=== PATIENT | male | born 1970 | race American Indian/Alaskan Native ===

== ENCOUNTER 2017-04-19 18:18 | Inpatient (IN) | payer MEDICAID ==
[2017-04-19 19:09] LABS: BASO % 0.3 % (0.0-2.0); HEMATOCRIT 39.6 % (35.0-51.0); LYMPH # 0.8 K/uL (1.0-4.3); LYMPH % 15.2 % (20.0-40.0); MEAN CELL VOLUME 112.5 fL (80.0-94.0); MEAN CORPUSCULAR HEMOGLOBIN 39.9 pg (27.0-31.0); MEAN CORPUSCULAR HGB CONC 35.5 g/dL (33.0-37.0); MEAN PLATELET VOLUME 8.2 fL (7.2-11.7); MONO # 0.3 K/uL (0.0-0.8); MONO % 5.8 % (0.0-10.0); NRBC % 0.3 % (0.0-2.0); RED CELL DISTRIBUTION WIDTH 13.9 % (11.5-14.5); WHITE BLOOD COUNT 5.5 K/uL (4.8-10.8)
[2017-04-19 19:14] LABS: CHLORIDE 100 mmol/L (98-107); POTASSIUM 4.5 mmol/L (3.6-5.2); SODIUM 142 mmol/L (132-148)
[2017-04-19 19:16] LABS: BILIRUBIN,TOTAL 0.9 mg/dL (0.2-1.3); CARBON DIOXIDE 20 mmol/L (22-30); GFR AFRICAN-AMERICAN > 60
[2017-04-19 19:17] LABS: ALB/GLOB RATIO 1.2 (1.0-2.1); ALKALINE PHOSPHATASE 74 U/L (38-126); ALT/SGPT 79 U/L (21-72); AST/SGOT 342 U/L (17-59); BLOOD UREA NITROGEN 10 mg/dL (9-20); CALCIUM 9.4 mg/dl (8.6-10.4); GLUCOSE,RANDOM 120 mg/dL (75-110); TOTAL PROTEIN 8.6 g/dL (6.3-8.3)
[2017-04-19 19:27] LABS: ALCOHOL SERUM 419 mg/dl (0-10)
--- NOTE | 2017-04-19 19:35 | C.PDOC ---
History Of Present Illness 46 y/o male presents to the ED requesting alcohol detox. Patient states his last drink was prior to arrival. He denies any other drug use. FOR DETOX ETOH., LAST DRINK [employer]. DENIES OTHER DRUG USE EXAM NAD PSYCH +MILD INTOX CALM COOPERATIVE NO ACTIVE PSYCHOSIS, SI REMAINDER NEG Time Seen by Provider: 04/19/17 19:17 Chief Complaint (Nursing): Substance Abuse History Per: Patient History/Exam Limitations: intoxication Onset/Duration Of Symptoms: Hrs Current Symptoms Are (Timing): Still Present Suicide/Self Injury Attempted (Context): None Modifying Factor(s): Alcohol Involuntary Hold By: None Recent travel outside of the [place]: No Additional History Per: Patient Past Medical History Reviewed: Historical Data, Nursing Documentation, Vital Signs Vital Signs: Last Vital Signs Temp 98.3 F 04/20/17 04:08 Pulse 78 04/20/17 04:08 Resp 16 04/20/17 04:08 BP 130/79 04/20/17 04:08 Pulse Ox 97 04/20/17 04:08 - Medical History PMH: No Chronic Diseases Surgical History: No Surg Hx Family History: States: Unknown Family Hx - Social History Hx Alcohol Use: Yes Hx Substance Use: No - Immunization History Hx Tetanus Toxoid Vaccination: No Hx Influenza Vaccination: No Hx Pneumococcal Vaccination: No Review Of Systems Psych: Positive for: Other (alcohol detox ) Physical Exam - Physical Exam Appears: No Acute Distress Skin: Normal Color, Warm, Dry Head: Normacephalic Eye(s): bilateral: Normal Inspection Oral Mucosa: Moist Neck: Supple Chest: Symmetrical Cardiovascular: Rhythm Regular Respiratory: Normal Breath Sounds Extremity: Normal ROM Neurological/Psych: Other (mildly intoxicated. calm, cooperative. no active psychosis or suicidal ideation ) ED Course And Treatment - Laboratory Results Result Diagrams: 04/19/17 19:03 04/19/17 19:03 O2 Sat by Pulse Oximetry: 96 (on RA) Pulse Ox Interpretation: Normal Progress Note: labs ordered and reviewed. Progress - Data Reviewed Data Reviewed: Lab, Old records ED OBSERVATION Date of observation admission: 04/19/17 Time of observation admission: 19:00 - Observation admission statement Patient is being placed in observation because:: INTOX - Goals of Observation Goals of observation are:: MED CLEAR, SOBRIETY, DETOX EVAL - Progress Note Progress Note: 04/19/17 19:37 ETOH CLEAR 0700 Disposition Counseled Patient/Family Regarding: Studies Performed, Diagnosis - Disposition Disposition: HOSPITALIZED Disposition Time: 05:34 Condition: STABLE - Clinical Impression Clinical Impression: Alcohol use disorder - Scribe Statement The provider has reviewed the documentation as recorded by the Scribe (Ekaterina Chakraborty) Provider Attestation: All medical record entries made by the Scribe were at my direction and personally dictated by me. I have reviewed the chart and agree that the record accurately reflects my personal performance of the history, physical exam, medical decision making, and the department course for this patient. I have also personally directed, reviewed, and agree with the discharge instructions and disposition. Decision To Admit - Pt Status Changed To: Hospital Disposition Of: Inpatient - Admit Certification Admit to Inpatient:: After my assessment, the patient will require hospitalization for at least two midnights. This is because of the severity of symptoms shown, intensity of services needed, and/or the medical risk in this patient being treated as an outpatient. - InPatient: Physician Admission Certification: I certify that this patient requires 2 or more midnights of care for the following reason:: SEE NOTE - . Bed Request Type: Psychiatry Admitting Physician: Anai Devries Patient Diagnosis: Alcohol use disorder
[2017-04-19 20:04] LABS: URINE BILIRUBIN NEGATIVE (NEGATIVE); URINE BLOOD 1+ (NEGATIVE); URINE COLOR Yellow (YELLOW); URINE GLUCOSE (UA) NORMAL (Normal); URINE KETONE NEGATIVE (NEGATIVE); URINE LEUKOCYTE ESTERASE NEG Leu/uL (Negative); URINE PROTEIN 2+ mg/dL (NEGATIVE); WBC URINE < 1 /hpf (0-5)
[2017-04-20] MEDS ORDERED: Permethrin 5% Cream(60 gm) TOP ONE ×2 (08:15→10:26)
--- NOTE | 2017-04-20 08:31 | PCM.BM ---
<Anel Sher - Last Filed: 04/20/17 08:29> Treatment Plan Problems - Problems identified on initial assessmt Alcohol use disorder Date Initiated: 04/20/17 Assessment reference: NA Status: Active Treatment assets and liabiliti Patient Assests: cooperative, ADL independent Patient Liabilities: relationship conflicts, substance abuse, medical problems - Milieu Protocol Maintain good personal hygiene: daily Encourage regular showers, daily Remind patient to perform daily oral care, daily Assist patient to perform ADL's, every shift Encourage regular showers, every shift Remind patient to perform daily oral care, every shift Assist patient to perform ADL's Maintain personal safety: daily Educate patient to report safety concerns to staff, daily Monitor environment for contraband/sharps, every shift Educate patient to report safety concerns to staff, every shift Monitor environment for contraband/sharps Medication safety: Monitor for expected outcome, potential side effects: every shift, Assess barriers to learning: every shift, Assess readiness for medication education: every shift <Susan Wolf - Last Filed: 04/20/17 10:17> - Diagnosis (1) Alcohol use disorder Status: Acute Interventions: 04/20/17 10:17 * Assess 7x/week regarding severity of withdrawal * Educate regarding risks, benefits, side effects and alternatives of medications * Use Motivational Interviewing for abstinence * Use CBT for relapse prevention * Medication management for withdrawal symptoms * Encourage medication assisted treatment *
--- NOTE | 2017-04-20 10:17 | CP.PCM.CON ---
<Suzi Wilson - Last Filed: 04/20/17 10:43> History of Present Illness - History of Present Illness History of Present Illness: Consult: body rash/ scabies 46 year old male with PMHx of HTN and alcohol abuse presented to the ED overnight for detox. Medicine team has been asked to evaluate patient for rash that is concerning for scabies. Patient has had rash over the past 1 week. Admits that his apartment was found to be infested with fleas/bed bugs. However , patient reports home has been "cleaned". Patient was prescribed Permetherin cream on but never filled prescription. Patient admits his fiance at home also has similar rash/bumps over her arms. She has also not been treated. Denies to injecting drugs into his skin. Admits last use of cocaine was 1 week ago. Admits to drinking around 10 shots of hard alcohol a day for the past 1 year. No other complaints. PMHx: HTN Medications: Norvasc 5 mg Allergies: NKDA Surgeries: none Family Hx: father of ND in his 60's. Social Hx: Admits to tobacco use, uses cocaine and drinks 8-10 shots of hard liquor a day. Denies IVDU. PMD: none Review of Systems - Constitutional Constitutional: absent: Chills, Fatigue, Fever - EENT Eyes: absent: Blurred Vision, Change in Vision - Cardiovascular Cardiovascular: absent: Chest Pain, Dyspnea - Respiratory Respiratory: absent: Cough, Dyspnea - Gastrointestinal Gastrointestinal: absent: Abdominal Pain, Constipation, Diarrhea, Nausea, Vomiting - Genitourinary Genitourinary: absent: Difficulty Urinating, Dysuria - Musculoskeletal Musculoskeletal: absent: Back Pain, Numbness, Tingling - Integumentary Integumentary: Pruritus, Rash - Neurological Neurological: Other (shaky secondary to withdrawal ). absent: Convulsions, Dizziness, Numbness, Radicular Pain, Syncope, Weakness - Psychiatric Psychiatric: absent: Anxiety, Depression - Endocrine Endocrine: absent: Fatigue, Palpitations - Hematologic/Lymphatic Hematologic: absent: Other Past Patient History - Infectious Disease Hx of Infectious Diseases: None - Past Medical History & Family History Past Medical History?: Yes - Past Social History Smoking Status: Current Some Days Smoker - CARDIAC Hx Cardiac Disorders: Yes Hx Hypertension: Yes - PULMONARY Hx Respiratory Disorders: No Hx Tuberculosis: No - NEUROLOGICAL Hx Neurological Disorder: No HX Cerebrovascular Accident: No Hx Seizures: No - HEENT Hx HEENT Problems: No - RENAL Hx Chronic Kidney Disease: No - ENDOCRINE/METABOLIC Hx Endocrine Disorders: No - HEMATOLOGICAL/ONCOLOGICAL Hx Blood Disorders: No Hx Cancer: No Hx Human Immunodeficiency Virus (HIV): No - INTEGUMENTARY Hx Dermatological Problems: Yes Other/Comment: Pt has multiple healing scabs scattered about his body, and states his home was treated for bed bugs and fleas about 3 weeks ago...pt has home medication of permethrin and steroids , pt states he did not use permethrin yet. Pt states he has transient itching. - MUSCULOSKELETAL/RHEUMATOLOGICAL Hx Musculoskeletal Disorders: No Hx Falls: No - GASTROINTESTINAL Hx Gastrointestinal Disorders: No - GENITOURINARY/GYNECOLOGICAL Hx Genitourinary Disorders: No Hx Sexually Transmitted Disorders: No - PSYCHIATRIC Hx Psychophysiologic Disorder: No Hx Substance Use: Yes (cocaine) - SURGICAL HISTORY Hx Surgeries: No - ANESTHESIA Hx Anesthesia: No Meds Allergies/Adverse Reactions: Allergies Allergy/AdvReac Type Severity Reaction Status Date / Time No Known Allergies Allergy Verified 04/19/17 18:21 - Medications Medications: Current Medications Amlodipine Besylate (Norvasc) 5 mg PO DAILY [facility] Folic Acid (Folic Acid) 1 mg PO DAILY MELANI Gabapentin (Neurontin) 300 mg PO BID MELANI Haloperidol (Haldol) 5 mg PO Q8 PRN PRN Reason: Moderate Agitation Hydroxyzine HCl (Atarax) 50 mg PO Q6 PRN PRN Reason: Anxiety Ivermectin (Stromectol) 12 mg PO ONCE ONE Stop: 04/20/17 10:04 Lorazepam (Ativan) 1 mg PO Q4H PRN PRN Reason: Agitation Lorazepam (Ativan) 2 mg PO Q6H MELANI PRN Reason: Taper Stop: 04/24/17 08:59 Last Admin: 04/20/17 08:57 Dose: 2 mg Multivitamins (Hexavitamin) 1 tab PO DAILY [facility] Thiamine HCl (Vitamin B1 Tab) 100 mg PO DAILY MELANI Trazodone HCl (Desyrel) 100 mg PO HS PRN PRN Reason: Insomnia Physical Exam - Constitutional Appears: No Acute Distress, Chronically Ill - Head Exam Head Exam: ATRAUMATIC, NORMAL INSPECTION - Eye Exam Eye Exam: EOMI, Normal appearance - ENT Exam ENT Exam: Mucous Membranes Dry - Neck Exam Neck exam: Positive for: Full Rom, Normal Inspection - Respiratory Exam Respiratory Exam: Clear to Auscultation Bilateral, NORMAL BREATHING PATTERN - Cardiovascular Exam Cardiovascular Exam: REGULAR RHYTHM, +S1, +S2 - GI/Abdominal Exam GI & Abdominal Exam: Hypoactive Bowel Sounds, Normal Bowel Sounds, Soft. absent : Distended, Tenderness - Extremities Exam Extremities exam: Positive for: full ROM. Negative for: tenderness Additional comments: +tremor - Back Exam Back exam: NORMAL INSPECTION - Neurological Exam Neurological exam: Alert, Oriented x3 Additional comments: +unsteady gait - Psychiatric Exam Psychiatric exam: Normal Affect, Normal Mood - Skin Skin Exam: Dry, Warm Additional comments: + hyperkeratotic and crusted areas on bilateral arms and legs. Some seen over hands. +Excoriation hughes. Results - Vital Signs Recent Vital Signs: Last Vital Signs Temp 98.7 F 04/20/17 07:30 Pulse 67 04/20/17 07:30 Resp 18 04/20/17 07:30 BP 144/90 04/20/17 07:30 Pulse Ox 98 04/20/17 07:30 - Labs Result Diagrams: 04/19/17 19:03 04/19/17 19:03 Labs: Laboratory Results - last 24 hr 04/19/17 04/19/17 04/19/17 19:03 19:03 19:58 WBC 5.5 RBC 3.52 L Hgb 14.0 Hct 39.6 MCV 112.5 H MCH 39.9 H MCHC 35.5 RDW 13.9 Plt Count 103 L MPV 8.2 Neut % (Auto) 78.7 H Lymph % (Auto) 15.2 L Wallace % (Auto) 5.8 Eos % (Auto) 0.0 Baso % (Auto) 0.3 Neut # 4.3 Lymph # 0.8 L Wallace # 0.3 Eos # 0.0 Baso # 0.0 Differential Comment Sodium 142 Potassium 4.5 Chloride 100 Carbon Dioxide 20 L Anion Gap 27 H BUN 10 Creatinine 0.9 Est GFR ( Amer) > 60 Est GFR (Non-Af Amer) > 60 Random Glucose 120 H Calcium 9.4 Total Bilirubin 0.9 AST 342 H ALT 79 H Alkaline Phosphatase 74 Total Protein 8.6 H Albumin 4.7 Globulin 3.9 Albumin/Globulin Ratio 1.2 Urine Color Yellow Urine Clarity Clear Urine pH 6.0 Ur Specific Harvey 1.006 Urine Protein 2+ H Urine Glucose (UA) Normal Urine Ketones Negative Urine Blood 1+ H Urine Nitrate Negative Urine Bilirubin Negative Urine Urobilinogen 2.0 Ur Leukocyte Esterase Neg Urine WBC (Auto) < 1 Ur Squamous Epith Cells < 1 Urine Opiates Screen Urine Methadone Screen Ur Barbiturates Screen Ur Phencyclidine Scrn Ur Amphetamines Screen U Benzodiazepines Scrn U Oth Cocaine Metabols U Cannabinoids Screen Alcohol, Quantitative 419 H 04/19/17 19:58 WBC RBC Hgb Hct MCV MCH MCHC RDW Plt Count MPV Neut % (Auto) Lymph % (Auto) Wallace % (Auto) Eos % (Auto) Baso % (Auto) Neut # Lymph # Wallace # Eos # Baso # Differential Comment Sodium Potassium Chloride Carbon Dioxide Anion Gap BUN Creatinine Est GFR ( Amer) Est GFR (Non-Af Amer) Random Glucose Calcium Total Bilirubin AST ALT Alkaline Phosphatase Total Protein Albumin Globulin Albumin/Globulin Ratio Urine Color Urine Clarity Urine pH Ur Specific Harvey Urine Protein Urine Glucose (UA) Urine Ketones Urine Blood Urine Nitrate Urine Bilirubin Urine Urobilinogen Ur Leukocyte Esterase Urine WBC (Auto) Ur Squamous Epith Cells Urine Opiates Screen Negative Urine Methadone Screen Negative Ur Barbiturates Screen Negative Ur Phencyclidine Scrn Negative Ur Amphetamines Screen Negative U Benzodiazepines Scrn Negative U Oth Cocaine Metabols Positive U Cannabinoids Screen Negative Alcohol, Quantitative Assessment & Plan (1) Crusted scabies Assessment and Plan: Patient will be transferred to Med/Surg floor to be placed in contact isolation. Nursing communication: * Staff to shower patient. Fall precautions instructed, such as shower chair, since patient is in withdrawal. * Staff to shave patient and apply Permethrin topical from head to toe and leave there for 12 hours. Patient also ordered for 1 time dose of Ivermectin 12 mg. Will check HIV/RPR/Hep panel f/u CBC in the AM Status: Acute (2) HTN (hypertension) Assessment and Plan: Continue home medication of Norvasc 5 mg PO daily Status: Acute (3) Alcohol use disorder Assessment and Plan: Management as per Detox team. Dr. Wolf will continue to follow patient on medical floor. Ativan 2 mg PO Q6H (taper) Ativan 1 mg PO Q4H PRN Agitations Haldol 5 mg PO Q8H PRN Mod Agitation Thiamine 100 mg PO daily MV PO daily Folic Acid 1 mg PO daily Hydroxyzine 50 mg PO Q6H PRN Anxiety Fall risk protocol Seizure precautions Status: Acute (4) Cocaine abuse Assessment and Plan: Management as per Detox team. Dr. Wolf will continue to follow patient on medical floor. UDS + cocaine. Management as above. Status: Acute (5) Prophylactic measure Assessment and Plan: Pepcid 20 mg PO BID SCDs Fall risk protocol Status: Acute <MeredithSotero H - Last Filed: 04/20/17 14:48> Meds - Medications Medications: Current Medications Amlodipine Besylate (Norvasc) 5 mg PO DAILY [facility] Last Admin: 04/20/17 10:58 Dose: 5 mg Famotidine (Pepcid) 20 mg PO BID [facility] Folic Acid (Folic Acid) 1 mg PO DAILY [facility] Last Admin: 04/20/17 10:58 Dose: 1 mg Gabapentin (Neurontin) 300 mg PO BID [facility] Last Admin: 04/20/17 10:58 Dose: 300 mg Haloperidol (Haldol) 5 mg PO Q8 PRN PRN Reason: Moderate Agitation Hydroxyzine HCl (Atarax) 50 mg PO Q6 PRN PRN Reason: Anxiety Lorazepam (Ativan) 1 mg PO Q4H PRN PRN Reason: Agitation Last Admin: 04/20/17 10:58 Dose: 1 mg Lorazepam (Ativan) 2 mg PO Q6H MELANI PRN Reason: Taper Stop: 04/24/17 08:59 Last Admin: 04/20/17 14:14 Dose: 2 mg Multivitamins (Hexavitamin) 1 tab PO DAILY [facility] Last Admin: 04/20/17 10:58 Dose: 1 tab Thiamine HCl (Vitamin B1 Tab) 100 mg PO DAILY [facility] Last Admin: 04/20/17 10:58 Dose: 100 mg Trazodone HCl (Desyrel) 100 mg PO HS PRN PRN Reason: Insomnia Results - Vital Signs Recent Vital Signs: Last Vital Signs Temp 98.8 F 04/20/17 13:18 Pulse 66 04/20/17 13:18 Resp 18 04/20/17 13:18 BP 180/97 H 04/20/17 13:18 Pulse Ox 98 04/20/17 13:18 - Labs Result Diagrams: 04/19/17 19:03 04/19/17 19:03 Labs: Laboratory Results - last 24 hr 04/19/17 04/19/17 04/19/17 19:03 19:03 19:58 WBC 5.5 RBC 3.52 L Hgb 14.0 Hct 39.6 MCV 112.5 H MCH 39.9 H MCHC 35.5 RDW 13.9 Plt Count 103 L MPV 8.2 Neut % (Auto) 78.7 H Lymph % (Auto) 15.2 L Wallace % (Auto) 5.8 Eos % (Auto) 0.0 Baso % (Auto) 0.3 Neut # 4.3 Lymph # 0.8 L Wallace # 0.3 Eos # 0.0 Baso # 0.0 Differential Comment Sodium 142 Potassium 4.5 Chloride 100 Carbon Dioxide 20 L Anion Gap 27 H BUN 10 Creatinine 0.9 Est GFR ( Amer) > 60 Est GFR (Non-Af Amer) > 60 Random Glucose 120 H Calcium 9.4 Total Bilirubin 0.9 AST 342 H ALT 79 H Alkaline Phosphatase 74 Total Protein 8.6 H Albumin 4.7 Globulin 3.9 Albumin/Globulin Ratio 1.2 Urine Color Yellow Urine Clarity Clear Urine pH 6.0 Ur Specific Harvey 1.006 Urine Protein 2+ H Urine Glucose (UA) Normal Urine Ketones Negative Urine Blood 1+ H Urine Nitrate Negative Urine Bilirubin Negative Urine Urobilinogen 2.0 Ur Leukocyte Esterase Neg Urine WBC (Auto) < 1 Ur Squamous Epith Cells < 1 Urine Opiates Screen Urine Methadone Screen Ur Barbiturates Screen Ur Phencyclidine Scrn Ur Amphetamines Screen U Benzodiazepines Scrn U Oth Cocaine Metabols U Cannabinoids Screen Alcohol, Quantitative 419 H Hepatitis A IgM Ab Hep Bs Antigen Hep B Core IgM Ab Hepatitis C Antibody HIV 1&2 Antibody Screen 04/19/17 04/20/17 04/20/17 19:58 11:29 11:29 WBC RBC Hgb Hct MCV MCH MCHC RDW Plt Count MPV Neut % (Auto) Lymph % (Auto) Wallace % (Auto) Eos % (Auto) Baso % (Auto) Neut # Lymph # Wallace # Eos # Baso # Differential Comment Sodium Potassium Chloride Carbon Dioxide Anion Gap BUN Creatinine Est GFR ( Amer) Est GFR (Non-Af Amer) Random Glucose Calcium Total Bilirubin AST ALT Alkaline Phosphatase Total Protein Albumin Globulin Albumin/Globulin Ratio Urine Color Urine Clarity Urine pH Ur Specific Harvey Urine Protein Urine Glucose (UA) Urine Ketones Urine Blood Urine Nitrate Urine Bilirubin Urine Urobilinogen Ur Leukocyte Esterase Urine WBC (Auto) Ur Squamous Epith Cells Urine Opiates Screen Negative Urine Methadone Screen Negative Ur Barbiturates Screen Negative Ur Phencyclidine Scrn Negative Ur Amphetamines Screen Negative U Benzodiazepines Scrn Negative U Oth Cocaine Metabols Positive U Cannabinoids Screen Negative Alcohol, Quantitative Hepatitis A IgM Ab Negative Hep Bs Antigen Negative Hep B Core IgM Ab Negative Hepatitis C Antibody Negative HIV 1&2 Antibody Screen Negative Attending/Attestation - Attestation I have personally seen and examined this patient.: Yes I have fully participated in the care of the patient.: Yes I have reviewed all pertinent clinical information: Yes Notes (Text): 04/20/17 14:44 Medical Attending: Medical consult: Patient was seen and examined by me, agrees the above note by medical records tech. Patient is currently at 7 detox for alcohol withdrawal, cocaine use, as well as depression. To medicine was consulate after we were notified that the patient reported that he has outbreak of scabies is concern about bed bugs as well. As documented above the resident note there is concern for home attestation. We came over to see the patient he has a lot of lesions on his skin particularly the forearms and also in the antecubital fossa that appeared to be areas of a lot of itching, and slightly small raised erythematous areas. This is all over his forearm as well as slightly on his shoulders and also on his sacral area. Interestingly enough he did not have any in the webs of his fingers the webs of his toes. However it's rather extensive At this time we gave instructions to use clipper shaved the patient completely both head to his toes. He needs to take shower as soon as possible. He also needs to start permethrin cream to be placed on generously over the surface of his body that are affected. There is also given ivermectin to be given a one- time dose Thank you very much, Sotero Harper
[2017-04-20] MEDS: Multiple Vitamins Tab PO SCH (10:58)
--- NOTE | 2017-04-20 11:42 | PCM.PSYCH ---
Initial Psychiatric Evaluation - Initial Psychiatric Evaluation Type of Admission: Voluntary Legal Status: Capacity Chief Complaint (in patient's own words): "Alcohol" History of Present Illness and Precipitating Events: The patient is seen, chart reviewed and case discussed. This is a 46-year-old -[place] male, with one daughter, lives with his mother. The patient admits to drinking 10 shots of liquor every day and 2-3 cans of beer on top of that. He says his been drinking "many years." He first started drinking when he was 14 years old and the last few years it has become a big problem. This is his first detox and he has never been to AA or rehabilitation. He has never used alcohol anti-craving medications. No history of seizures or DTs. He also denies other drug use except for cocaine "once or twice a month," by smoking. He smokes half pack per day cigarettes. He denies psych symptoms. Past psych history: Denies Family psych history: Denies Medical history: High blood pressure and recently diagnosed scabies. The patient also had bed bugs but he claims it's been taken care of. He is seen by medicine and he has a cream for scabies. Help appreciated Current Medications: Active Medications Generic Name Dose Route Start Last Admin Trade Name Freq PRN Reason Stop Dose Admin Amlodipine Besylate 5 mg 04/20/17 10:00 04/20/17 10:58 Norvasc PO 5 mg DAILY [facility] Administration Famotidine 20 mg 04/21/17 10:00 Pepcid PO BID [facility] Folic Acid 1 mg 04/20/17 10:00 04/20/17 10:58 Folic Acid PO 1 mg DAILY [facility] Administration Gabapentin 300 mg 04/20/17 10:00 04/20/17 10:58 Neurontin PO 300 mg BID [facility]ANI Administration Haloperidol 5 mg 04/20/17 05:34 Haldol PO Q8 PRN Moderate Agitation Hydroxyzine HCl 50 mg 04/20/17 08:48 Atarax PO Q6 PRN Anxiety Lorazepam 1 mg 04/20/17 05:40 04/20/17 10:58 Ativan PO 1 mg Q4H PRN Administration Agitation Lorazepam 2 mg 04/20/17 09:00 04/20/17 08:57 Ativan PO 04/24/17 08:59 2 mg Q6H MELANI Administration Taper Multivitamins 1 tab 04/20/17 10:00 04/20/17 10:58 Hexavitamin PO 1 tab DAILY [facility] Administration Thiamine HCl 100 mg 04/20/17 10:00 04/20/17 10:58 Vitamin B1 Tab PO 100 mg DAILY [facility] Administration Trazodone HCl 100 mg 04/20/17 08:48 Desyrel PO HS PRN Insomnia Past Psychiatric History - Past Psychiatric History Previous Treatment History: None Pertinent Medical Hx (Current Medical&Sleep Prob, Allergies): Allergies Allergy/AdvReac Type Severity Reaction Status Date / Time No Known Allergies Allergy Verified 04/19/17 18:21 Review of Systems - Integumentary Integumentary: Lesions, Pruritus - Neurological Neurological: Tremor - Psychiatric Psychiatric: Abnormal Sleep Pattern, Anxiety. absent: Depression, Hallucinations, Homicidal Ideation, Suicidal Ideation Mental Status Examination - Personal Presentation Personal Presentation: Looks stated age - Affect Affect: Constricted - Motor Activity Motor Activity: Calm - Reliability in Providing Information Reliability in Providing Information: Good - Speech Speech: Organized - Mood Mood: Anxious - Formal Thought Process Formal Thought Process: No Impairment - Cognitive Functions Orientation: Person, Place, Situation, Time Sensorium: Alert Attention/Concentration: Attentive Estimate of Intelligence: Average Judgement: Intact, as evidence by: Insight regarding need for hospitalization Memory: Recent intact, as evidence by: Ability to recall events of the day, Remote intact, as evidenced by: Abilit to recall sig. life events - Risk Risk: Seizure, Withdrawal, Diminished functioning - Strength & Assets Inventory Strength & Assets Inventory: Cooperative - Limitations Limitations: Other DSM 5 DX - DSM 5 DSM 5 Diagnosis: Alcohol withdrawal Alcohol use d/o - severe Cocaine use d/o - moderate Tobacco use d/o - moderate - Recommended/Plan of Treatment Treatment Recommendations and Plan of Treatment: Ativan detox As needed medications Gabapentin for augmentation Attend groups and activities Supportive therapy and psychoeducation LA for abstinence CBT for relapse prevention Encourage MAT Refer to rehab or IOP Attend self-help groups as well Gabapentin and LA for cocaine Patch and LA for nicotine Check Hepatitis panel as his AST is very elevated (340+) Pt will be transferred to medicine for isolation and scabies treatment Pls consult psych if needed. Otherwise curriculum writer will follow on weekdays. 34 min Projected ELOS: 4-5 days Prognosis: Good with treatment Discharge Plan and Discharge Criteria: No wdw sxs refer to iop or rehab Consider Vivitrol or Antabus - Smoking Cessation Smoking Cessation Initiated: Yes
[2017-04-20 16:48] VITALS: RESP 20
[2017-04-21 08:11] LABS: BASO # 0.1 K/uL (0.0-0.2); EOS # 0.1 K/uL (0.0-0.7); EOS % 0.9 % (0.0-4.0); HEMATOCRIT 38.6 % (35.0-51.0); LYMPH # 1.1 K/uL (1.0-4.3); LYMPH % 18.1 % (20.0-40.0); MEAN CELL VOLUME 112.4 fL (80.0-94.0); MEAN CORPUSCULAR HEMOGLOBIN 39.9 pg (27.0-31.0); MEAN CORPUSCULAR HGB CONC 35.5 g/dL (33.0-37.0); MEAN PLATELET VOLUME 8.7 fL (7.2-11.7); MONO # 0.6 K/uL (0.0-0.8); MONO % 10.8 % (0.0-10.0); NRBC % 0.3 % (0.0-2.0); RED CELL DISTRIBUTION WIDTH 13.5 % (11.5-14.5); WHITE BLOOD COUNT 5.9 K/uL (4.8-10.8)
[2017-04-21 08:24] LABS: CHLORIDE 97 mmol/L (98-107); SODIUM 138 mmol/L (132-148)
[2017-04-21 08:26] LABS: GFR AFRICAN-AMERICAN > 60
[2017-04-21 08:27] LABS: ALB/GLOB RATIO 1.1 (1.0-2.1); ALKALINE PHOSPHATASE 66 U/L (38-126); ALT/SGPT 70 U/L (21-72); AST/SGOT 243 U/L (17-59); BILIRUBIN,TOTAL 1.4 mg/dL (0.2-1.3); BLOOD UREA NITROGEN 15 mg/dL (9-20); CARBON DIOXIDE 27 mmol/L (22-30); GLUCOSE,RANDOM 94 mg/dL (75-110); PHOSPHOROUS 3.8 mg/dL (2.5-4.5); TOTAL PROTEIN 7.9 g/dL (6.3-8.3)
[2017-04-21 08:28] LABS: CALCIUM 9.2 mg/dl (8.6-10.4); MAGNESIUM 1.6 mg/dL (1.6-2.3)
[2017-04-21 09:17] VITALS: O2SAT 98
[2017-04-21] MEDS: Multiple Vitamins Tab PO SCH (09:59)
--- NOTE | 2017-04-21 10:32 | CP.PCM.PN ---
<Suzi Wilson - Last Filed: 04/21/17 10:36> Subjective - Date & Time of Evaluation Date of Evaluation: 04/21/17 Time of Evaluation: 08:00 - Subjective Subjective: Medicine Progress Note- Dr. Harper's Service: Patient seen and examined at bedside this AM. Patient reports feeling well today. He is less shaky and less itchy. He denies nausea or vomiting. He was able to sleep through the night. Objective - Vital Signs/Intake and Output Vital Signs (last 24 hours): Temp Pulse Resp BP Pulse Ox 98.4 F 81 20 154/97 H 98 04/21/17 09:15 04/21/17 09:15 04/21/17 09:15 04/21/17 09:15 04/21/17 09:15 Intake and Output: 04/21/17 04/21/17 06:59 18:59 Intake Total 760 Balance 760 - Medications Medications: Current Medications Amlodipine Besylate (Norvasc) 5 mg PO DAILY [facility] Last Admin: 04/21/17 10:00 Dose: 5 mg Famotidine (Pepcid) 20 mg PO BID [facility] Last Admin: 04/21/17 09:59 Dose: 20 mg Folic Acid (Folic Acid) 1 mg PO DAILY [facility] Last Admin: 04/21/17 10:00 Dose: 1 mg Gabapentin (Neurontin) 300 mg PO BID [facility] Last Admin: 04/21/17 10:00 Dose: 300 mg Haloperidol (Haldol) 5 mg PO Q8 PRN PRN Reason: Moderate Agitation Hydroxyzine HCl (Atarax) 50 mg PO Q6 PRN PRN Reason: Anxiety Lorazepam (Ativan) 1 mg PO Q4H PRN PRN Reason: Agitation Last Admin: 04/20/17 10:58 Dose: 1 mg Lorazepam (Ativan) 2 mg PO Q8H [facility] PRN Reason: Taper Stop: 04/24/17 08:59 Last Admin: 04/21/17 09:59 Dose: 2 mg Multivitamins (Hexavitamin) 1 tab PO DAILY [facility] Last Admin: 04/21/17 09:59 Dose: 1 tab Thiamine HCl (Vitamin B1 Tab) 100 mg PO DAILY [facility] Last Admin: 04/21/17 10:00 Dose: 100 mg Trazodone HCl (Desyrel) 100 mg PO HS PRN PRN Reason: Insomnia - Labs Labs: 04/21/17 07:50 04/21/17 07:50 - Constitutional Appears: No Acute Distress - Head Exam Head Exam: NORMAL INSPECTION, NORMOCEPHALIC - Eye Exam Eye Exam: EOMI, Normal appearance - ENT Exam ENT Exam: Mucous Membranes Moist - Neck Exam Neck Exam: Full ROM - Respiratory Exam Respiratory Exam: Clear to Ausculation Bilateral, NORMAL BREATHING PATTERN - Cardiovascular Exam Cardiovascular Exam: REGULAR RHYTHM, +S1, +S2 - GI/Abdominal Exam GI & Abdominal Exam: Soft. absent: Distended, Tenderness - Extremities Exam Extremities Exam: Full ROM, Normal Inspection. absent: Pedal Edema - Back Exam Back Exam: NORMAL INSPECTION - Neurological Exam Neurological Exam: Alert, Awake, Oriented x3 - Psychiatric Exam Psychiatric exam: Flat Affect, Normal Mood - Skin Skin Exam: Dry, Warm Additional comments: + hyperkeratotic and crusted areas on bilateral arms and legs. Some seen over hands. +Excoriation hughes. Assessment and Plan - Assessment and Plan (Free Text) Assessment: (1) Crusted scabies Assessment and Plan: Patient ordered for 1 time dose of Ivermectin 12 mg yesterday Permethrin topical from head to toe and leave there for 12 hours was ordered yesterday. HIV/RPR/Hep panel negative Status: Acute (2) Elevated LFTs Assessment and Plan: AST on admission 342, improved to 243. T. Raul 1.4 this AM. Up from 0.9 yesterday. Will continue to monitor. Likely secondary to alcohol use. Hep panel negative (3) Thromocytopenia Assessment and Plan: Likelt secondary to alcohol abuse. Platelet 97 this AM. Down from 103 on admission. Monitor CBC (4) HTN (hypertension) Assessment and Plan: Continue home medication of Norvasc 5 mg PO daily Status: Acute (5) Alcohol use disorder Assessment and Plan: Management as per Detox team. Dr. Wolf will continue to follow patient on medical floor. * Ativan 2 mg PO Q6H (taper) * Ativan 1 mg PO Q4H PRN Agitations * Haldol 5 mg PO Q8H PRN Mod Agitation * Thiamine 100 mg PO daily * MV PO daily * Folic Acid 1 mg PO daily * Hydroxyzine 50 mg PO Q6H PRN Anxiety Fall risk protocol Seizure precautions Status: Acute (6) Cocaine abuse Assessment and Plan: Management as per Detox team. Dr. Wolf will continue to follow patient on medical floor. UDS + cocaine. Management as above. Status: Acute (7) Prophylactic measure Assessment and Plan: Pepcid 20 mg PO BID SCDs Fall risk protocol <HarperSotero H - Last Filed: 04/21/17 14:34> Objective - Vital Signs/Intake and Output Vital Signs (last 24 hours): Temp Pulse Resp BP Pulse Ox 98.4 F 81 20 154/97 H 98 04/21/17 09:15 04/21/17 09:15 04/21/17 09:15 04/21/17 09:15 04/21/17 09:15 Intake and Output: 04/21/17 04/21/17 06:59 18:59 Intake Total 760 500 Balance 760 500 - Medications Medications: Current Medications Amlodipine Besylate (Norvasc) 10 mg PO DAILY [facility] Famotidine (Pepcid) 20 mg PO BID [facility] Last Admin: 04/21/17 09:59 Dose: 20 mg Folic Acid (Folic Acid) 1 mg PO DAILY [facility] Last Admin: 04/21/17 10:00 Dose: 1 mg Gabapentin (Neurontin) 300 mg PO TID [facility] Last Admin: 04/21/17 13:56 Dose: 300 mg Haloperidol (Haldol) 5 mg PO Q8 PRN PRN Reason: Moderate Agitation Hydroxyzine HCl (Atarax) 50 mg PO Q6 PRN PRN Reason: Anxiety Lorazepam (Ativan) 1 mg PO Q4H PRN PRN Reason: Agitation Last Admin: 04/20/17 10:58 Dose: 1 mg Lorazepam (Ativan) 2 mg PO Q8H [facility] PRN Reason: Taper Stop: 04/24/17 08:59 Last Admin: 04/21/17 09:59 Dose: 2 mg Multivitamins (Hexavitamin) 1 tab PO DAILY [facility] Last Admin: 04/21/17 09:59 Dose: 1 tab Thiamine HCl (Vitamin B1 Tab) 100 mg PO DAILY [facility] Last Admin: 04/21/17 10:00 Dose: 100 mg Trazodone HCl (Desyrel) 100 mg PO HS PRN PRN Reason: Insomnia - Labs Labs: 04/21/17 07:50 04/21/17 07:50 Attending/Attestation - Attestation I have personally seen and examined this patient.: Yes I have fully participated in the care of the patient.: Yes I have reviewed all pertinent clinical information, including history, physical exam and plan: Yes Notes (Text): Medical attending: Patient was seen and examined by me, agrees the above note by medical leader. At this time the patient does not have any acute complaints or concerns. As documented yesterday patient had oral ivermectin as well as topical permethrin cream. He was not having large tremors, he was not anxious. Currently he's being continued on the Ativan. We'll evaluate him again tomorrow probably will discharge him tomorrow as well Thank you very much, Sotero Harper
[2017-04-22 07:36] LABS: BASO # 0.1 K/uL (0.0-0.2); BASO % 0.9 % (0.0-2.0); EOS # 0.1 K/uL (0.0-0.7); EOS % 2.2 % (0.0-4.0); HEMATOCRIT 36.9 % (35.0-51.0); LYMPH # 0.9 K/uL (1.0-4.3); LYMPH % 14.7 % (20.0-40.0); MEAN CELL VOLUME 112.1 fL (80.0-94.0); MEAN CORPUSCULAR HEMOGLOBIN 39.8 pg (27.0-31.0); MEAN CORPUSCULAR HGB CONC 35.5 g/dL (33.0-37.0); MEAN PLATELET VOLUME 8.2 fL (7.2-11.7); MONO # 0.5 K/uL (0.0-0.8); MONO % 8.7 % (0.0-10.0); NRBC % 0.1 % (0.0-2.0); RED CELL DISTRIBUTION WIDTH 13.6 % (11.5-14.5); WHITE BLOOD COUNT 6.3 K/uL (4.8-10.8)
[2017-04-22 08:03] LABS: CHLORIDE 98 mmol/L (98-107); POTASSIUM 3.6 mmol/L (3.6-5.2); SODIUM 137 mmol/L (132-148)
[2017-04-22 08:05] LABS: ALB/GLOB RATIO 1.1 (1.0-2.1); ALKALINE PHOSPHATASE 59 U/L (38-126); AST/SGOT 149 U/L (17-59); BILIRUBIN,TOTAL 1.3 mg/dL (0.2-1.3); BLOOD UREA NITROGEN 12 mg/dL (9-20); CARBON DIOXIDE 24 mmol/L (22-30); GFR AFRICAN-AMERICAN > 60; TOTAL PROTEIN 7.4 g/dL (6.3-8.3)
[2017-04-22 08:06] LABS: ALT/SGPT 58 U/L (21-72); GLUCOSE,RANDOM 117 mg/dL (75-110); MAGNESIUM 1.5 mg/dL (1.6-2.3); PHOSPHOROUS 3.4 mg/dL (2.5-4.5)
[2017-04-22] MEDS: Multiple Vitamins Tab PO SCH (09:33)
--- NOTE | 2017-04-22 14:15 | CP.PCM.DIS ---
Provider - Provider Date of Admission: 04/20/17 05:35 Attending physician: Sotero Harper DO Primary care physician: none Consults: Medicine: Dr. Harper Time Spent in preparation of Discharge (in minutes): 45 Diagnosis - Discharge Diagnosis (1) Alcohol use disorder Status: Acute (2) Cocaine abuse Status: Acute (3) Crusted scabies Status: Acute (4) HTN (hypertension) Status: Acute Hospital Course - Lab Results Lab Results: Most Recent Lab Values WBC 6.3 K/uL (4.8-10.8) 04/22/17 07:28 RBC 3.29 Mil/uL (4.40-5.90) L 04/22/17 07:28 Hgb 13.1 g/dL (12.0-18.0) 04/22/17 07:28 Hct 36.9 % (35.0-51.0) 04/22/17 07:28 MCV 112.1 fL (80.0-94.0) H 04/22/17 07:28 MCH 39.8 pg (27.0-31.0) H 04/22/17 07:28 MCHC 35.5 g/dL (33.0-37.0) 04/22/17 07:28 RDW 13.6 % (11.5-14.5) 04/22/17 07:28 Plt Count 91 K/uL (130-400) L 04/22/17 07:28 MPV 8.2 fL (7.2-11.7) 04/22/17 07:28 Neut % (Auto) 73.5 % (50.0-75.0) 04/22/17 07:28 Lymph % (Auto) 14.7 % (20.0-40.0) L 04/22/17 07:28 Ritchie % (Auto) 8.7 % (0.0-10.0) 04/22/17 07:28 Eos % (Auto) 2.2 % (0.0-4.0) 04/22/17 07:28 Baso % (Auto) 0.9 % (0.0-2.0) 04/22/17 07:28 Neut # 4.7 K/uL (1.8-7.0) 04/22/17 07:28 Lymph # 0.9 K/uL (1.0-4.3) L 04/22/17 07:28 Ritchie # 0.5 K/uL (0.0-0.8) 04/22/17 07:28 Eos # 0.1 K/uL (0.0-0.7) 04/22/17 07:28 Baso # 0.1 K/uL (0.0-0.2) 04/22/17 07:28 Differential Comment 04/19/17 19:03 Sodium 137 mmol/L (132-148) 04/22/17 07:25 Potassium 3.6 mmol/L (3.6-5.2) 04/22/17 07:25 Chloride 98 mmol/L (98-107) 04/22/17 07:25 Carbon Dioxide 24 mmol/L (22-30) 04/22/17 07:25 Anion Gap 19 (10-20) 04/22/17 07:25 BUN 12 mg/dL (9-20) 04/22/17 07:25 Creatinine 0.7 MG/DL (0.8-1.5) L 04/22/17 07:25 Est GFR ( Amer) > 60 04/22/17 07:25 Est GFR (Non-Af Amer) > 60 04/22/17 07:25 Random Glucose 117 mg/dL (75-110) H 04/22/17 07:25 Calcium 9.0 mg/dl (8.6-10.4) 04/22/17 07:25 Phosphorus 3.4 mg/dL (2.5-4.5) 04/22/17 07:25 Magnesium 1.5 mg/dL (1.6-2.3) L 04/22/17 07:25 Total Bilirubin 1.3 mg/dL (0.2-1.3) 04/22/17 07:25 AST 149 U/L (17-59) H D 04/22/17 07:25 ALT 58 U/L (21-72) 04/22/17 07:25 Alkaline Phosphatase 59 U/L (38-126) 04/22/17 07:25 Total Protein 7.4 g/dL (6.3-8.3) 04/22/17 07:25 Albumin 3.9 g/dL (3.5-5.0) 04/22/17 07:25 Globulin 3.5 gm/dL (2.2-3.9) 04/22/17 07:25 Albumin/Globulin Ratio 1.1 (1.0-2.1) 04/22/17 07:25 Urine Color Yellow (YELLOW) 04/19/17 19:58 Urine Clarity Clear (Clear) 04/19/17 19:58 Urine pH 6.0 (5.0-8.0) 04/19/17 19:58 Ur Specific [place] 1.006 (1.003-1.030) 04/19/17 19:58 Urine Protein 2+ mg/dL (NEGATIVE) H 04/19/17 19:58 Urine Glucose (UA) Normal mg/dL (Normal) 04/19/17 19:58 Urine Ketones Negative mg/dL (NEGATIVE) 04/19/17 19:58 Urine Blood 1+ (NEGATIVE) H 04/19/17 19:58 Urine Nitrate Negative (NEGATIVE) 04/19/17 19:58 Urine Bilirubin Negative (NEGATIVE) 04/19/17 19:58 Urine Urobilinogen 2.0 mg/dL (0.2-1.0) 04/19/17 19:58 Ur Leukocyte Esterase Neg Calli/uL (Negative) 04/19/17 19:58 Urine WBC (Auto) < 1 /hpf (0-5) 04/19/17 19:58 Ur Squamous Epith Cells < 1 /hpf (0-5) 04/19/17 19:58 Urine Opiates Screen Negative (NEGATIVE) 04/19/17 19:58 Urine Methadone Screen Negative (NEGATIVE) 04/19/17 19:58 Ur Barbiturates Screen Negative (NEGATIVE) 04/19/17 19:58 Ur Phencyclidine Scrn Negative (NEGATIVE) 04/19/17 19:58 Ur Amphetamines Screen Negative (NEGATIVE) 04/19/17 19:58 U Benzodiazepines Scrn Negative (NEGATIVE) 04/19/17 19:58 U Oth Cocaine Metabols Positive (NEGATIVE) 04/19/17 19:58 U Cannabinoids Screen Negative (NEGATIVE) 04/19/17 19:58 Alcohol, Quantitative 419 mg/dl (0-10) H 04/19/17 19:03 RPR Nonreactive (NONREACTIVE) 04/20/17 11:29 Hepatitis A IgM Ab Negative (NEGATIVE) 04/20/17 11:29 Hep Bs Antigen Negative (NEGATIVE) 04/20/17 11:29 Hep B Core IgM Ab Negative (NEGATIVE) 04/20/17 11:29 Hepatitis C Antibody Negative (NEGATIVE) 04/20/17 11:29 HIV 1&2 Antibody Screen Negative (NEGATIVE) 04/20/17 11:29 - Hospital Course Hospital Course: 46 year old male with PMHx of HTN and alcohol abuse presented to the ED overnight for detox. Medicine team has been asked to evaluate patient for rash that is concerning for scabies. Patient has had rash over the past 1 week. Admits that his apartment was found to be infested with fleas/bed bugs. However , patient reports home has been "cleaned". Patient was prescribed Permetherin cream on but never filled prescription. Patient admits his fiance at home also has similar rash/bumps over her arms. She has also not been treated. Denies to injecting drugs into his skin. Admits last use of cocaine was 1 week ago. Admits to drinking around 10 shots of hard alcohol a day for the past 1 year. No other complaints. Initially admitted to detox unit for alcohol and cocaine abuse. Patient transferred from detox to med/surg for isolation due to scabies infestation. Patient was given treatment of Premethrin topical on 04/20. Patient completed detox as per detox team. Norvasc was increased to 10 mg PO daily. Patient stable for discharge as per Dr. Harper. This is only a summary of the hospital course. Please see chart for full details. Discharge Exam - Head Exam Head Exam: NORMAL INSPECTION, NORMOCEPHALIC - Eye Exam Eye Exam: EOMI, Normal appearance - Neck Exam Neck exam: Full Rom - Respiratory Exam Respiratory Exam: Clear to PA & Lateral, NORMAL BREATHING PATTERN - Cardiovascular Exam Cardiovascular Exam: REGULAR RHYTHM, +S1, +S2 - Extremities Exam Extremities exam: full ROM - Neurological Exam Neurological exam: Alert, Oriented x3 - Psychiatric Exam Psychiatric exam: Normal Affect, Normal Mood - Skin Skin Exam: Dry Additional comments: + hyperkeratotic and crusted areas on bilateral arms and legs. Some seen over hands. +Excoriation hughes. Discharge Plan - Discharge Medications Prescriptions: amLODIPine [Norvasc] 10 mg PO DAILY #30 tab Folic Acid 1 mg PO DAILY #30 tab Multivitamins [Hexavitamin] 1 tab PO DAILY #30 tab Thiamine [Vitamin B1 Tab] 100 mg PO DAILY #30 tab - Follow Up Plan Condition: STABLE Disposition: HOME/ ROUTINE Instructions: Thiamine (Vitamin B-1) (By mouth), Folic Acid (By mouth), Multivitamins, Adult Formula (By mouth), Amlodipine (By mouth), Heart Healthy Diet (DC), Cocaine Abuse (DC), Scabies (DC), Hypertension (DC), Alcohol Use Disorder (DC), Hypertension (GEN) Additional Instructions: Please discharge patient to home as per Dr. Harper. Please take the following new medications: Norvasc 10 mg PO daily Multivitamin Folic acid 1 tab PO daily Thiamine 100 mg PO daily Please follow up with your PMD of choice or at the [facility]. Return to the emergency room if symptoms return. Referrals: [facility] [Provider Group]
[2017-04-22 16:23] VITALS: BP 154/90; PULSE 76; TEMP 99.3
== END 2017-04-22 16:15 | disposition home or self-care (01) | DRG 751 ==
LOC: C.ER 18:18 → C.9OBSV 19:00 → OBSVTOIN 04-20 05:35 → C.7D 04-20 05:54 → C.3T 04-20 10:18
PROVIDERS: ADMIT Hospitalist; ATTEND Hospitalist
PROC: HZ2ZZZZ Detoxification Services for Substance Abuse Treatment (ICD-10-PCS; principal; 2017-04-20)
PROC: HZ42ZZZ Group Counseling for Substance Abuse Treatment, Cognitive-Behavioral (ICD-10-PCS; 2017-04-20)
PROC: HZ52ZZZ Individual Psychotherapy for Substance Abuse Treatment, Cognitive-Behavioral (ICD-10-PCS; 2017-04-20)
PROC: HZ59ZZZ Individual Psychotherapy for Substance Abuse Treatment, Supportive (ICD-10-PCS; 2017-04-20)
PROC: HZ56ZZZ Individual Psychotherapy for Substance Abuse Treatment, Psychoeducation (ICD-10-PCS; 2017-04-20)
PROC: HZ46ZZZ Group Counseling for Substance Abuse Treatment, Psychoeducation (ICD-10-PCS; 2017-04-20)
DX: F10.230 Alcohol dependence with withdrawal, uncomplicated (principal); I10 Essential (primary) hypertension; F32.9 Major depressive disorder, single episode, unspecified; F14.10 Cocaine abuse, uncomplicated; B86 Scabies; F17.210 Nicotine dependence, cigarettes, uncomplicated; R21 Rash and other nonspecific skin eruption; Y90.8 Blood alcohol level of 240 mg/100 ml or more; G47.00 Insomnia, unspecified